=== PATIENT | female | born 1940 | race Caucasian/White ===

== ENCOUNTER → 2017-09-11 | Outpatient (CLI) | payer MEDICARE, OTHER | END | disposition home or self-care (01) | LOC: RAH 14:45 | PROVIDERS: ATTEND Internal Medicine | DX: M19.012 Primary osteoarthritis, left shoulder (principal); M79.602 Pain in left arm | CPT/HCPCS: 73030; 73060 ==

== ENCOUNTER → 2019-07-08 | Outpatient (CLI) | payer MEDICARE, OTHER | END | disposition home or self-care (01) | LOC: RAH 13:14 | PROVIDERS: ATTEND Internal Medicine | DX: Z01.818 Encounter for other preprocedural examination (principal) | CPT/HCPCS: 71046 ==

== ENCOUNTER → 2024-10-14 | Outpatient (CLI) | payer MEDICARE, OTHER ==
--- NOTE | 2024-10-14 12:49 | HMCIMG ---
HIP UNILAT 2-3VW LEFT HISTORY: Osteoarthritis COMPARISON: None TECHNIQUE: 3 images of left hip were obtained. FINDINGS: Destructive changes are seen of the left hip. Joint space narrowing is seen. There is no acute displaced fracture or dislocation. Degenerative changes are seen. IMPRESSION: 1. Findings as described above.
== END | disposition home or self-care (01) ==
LOC: RAH 10:35
PROVIDERS: ATTEND Internal Medicine
DX: M16.12 Unilateral primary osteoarthritis, left hip (principal)
CPT/HCPCS: 73502

== ENCOUNTER → 2024-11-16 | Outpatient (CLI) | payer MEDICARE, OTHER ==
--- NOTE | 2024-11-16 17:49 | HMCIMG ---
MR HIP LEFT WO HISTORY: Left hip primary osteoarthritis COMPARISON: None TECHNIQUE: MRI of the left hip was performed utilizing multiple pulse sequences in axial, coronal and sagittal planes. Patient was not given contrast through intravenous route. FINDINGS: Increased signal intensity is seen involving the left acetabulum and left proximal femur consistent bone bruise (microtrabecular fracture). There are degenerative changes with joint space narrowing. Small joint effusion is seen. No evidence of avascular necrosis, acute displaced fracture or dislocation is seen. Bladder is poorly distended with apparent wall thickening. Degenerative changes are seen. IMPRESSION: 1. Bone bruising in the left acetabulum and left proximal femur. Small joint effusion. No fracture or dislocation. DJD
== END | disposition home or self-care (01) ==
LOC: RAH 14:12
PROVIDERS: ATTEND Internal Medicine
DX: S70.02XA Contusion of left hip, initial encounter (principal); S70.12XA Contusion of left thigh, initial encounter; M16.12 Unilateral primary osteoarthritis, left hip; M25.452 Effusion, left hip; M25.852 Other specified joint disorders, left hip; N32.89 Other specified disorders of bladder; R93.6 Abnormal findings on diagnostic imaging of limbs; X58.XXXA Exposure to other specified factors, initial encounter; Y93.89 Activity, other specified; Y92.89 Other specified places as the place of occurrence of the external cause; Y99.8 Other external cause status
CPT/HCPCS: 73721